=== PATIENT | female | born 1990 | race Asian ===

== ENCOUNTER 2017-07-28 20:18 | Emergency (ER) | payer OTHER ==
[2017-07-28 20:41] VITALS: BP 137/80; PULSE 75; RESP 16; TEMP 98.1; O2SAT 98
--- NOTE | 2017-07-28 21:41 | EDPHY ---
H & P Time Seen by Provider: 07/28/17 21:04 HPI/ROS: This patient reports that her skin grew over the back of her earring in her right upper earlobe is causing mild discomfort. Her slight swelling associated with this to the area of skin. She started noticing some discomfort over the past week after having the earring in for couple weeks and then today realized that she could remove the urine because a skin the groin over the back. She came in by private vehicle for evaluation. ROS: No fevers chills or other constitutional symptoms. Integumentary: No other skin rash or issues. 5 point ROS is otherwise negative. Smoking Status: Never smoked Physical Exam: Physical Exam Vital signs are normal. General: No acute distress HEENT: Normal except for right ear right ear exam is notable for mild erythema of skin grown over the back of her upper earlobe earring with associated mild tenderness. No fluctuance. External canals normal nurse for your exam is normal. Eyes: Pupils equal and react to light. Extraocular motions are intact. Cardiac: Brisk capillary refill is intact throughout. Skin: See HEENT exam above Neuro: Alert and oriented x3 with no sensorimotor deficits. Constitutional: Initial Vital Signs Temperature (C) 36.7 C 07/28/17 20:35 Heart Rate 75 07/28/17 20:35 Respiratory Rate 16 07/28/17 20:35 Blood Pressure 137/80 H 07/28/17 20:35 O2 Sat (%) 98 07/28/17 20:35 O2 Delivery Mode Room Air Allergies/Adverse Reactions: amoxicillin [Amoxicillin] Allergy (Intermediate, Verified 07/28/17 20:45) Home Medications: Medication Instructions Recorded Multivitamin (OTC) 12/14/14 MDM/Departure - MDM Procedures: Foreign body removal-right ear lobe After verbal consent I used chlorhexidine scrub, 1% plain lidocaine and 27 gauge needle-1 mL with good effect. I then used a 11. Scalpel blade making a small incision over the affected area and was then able to use Lynsey clamps easily remove the earring backing. Patient tolerated this well without complications. Bacitracin and gauze bandage were then applied by our tech. We counseled regarding wound care. - Depart Disposition: Home, Routine, Self-Care Clinical Impression: Acute foreign body of right earlobe Qualifiers: Encounter type: initial encounter Qualified Code(s): T16.1XXA - Foreign body in right ear, initial encounter Condition: Good Instructions: Acute Wounds (ED) Additional Instructions: Diagnosis: Foreign body-back of the earring in right earlobe-removed Plan: Clean the ear daily with warm soapy water Apply a bandage if there is any bleeding. Tylenol and/or ibuprofen for pain if needed Return for redness, discharge or any other concerns for infection. Referrals: NONE *PRIMARY CARE P,. [Primary Care Provider] - As per Instructions
== END 2017-07-28 21:53 | disposition home or self-care (01) ==
LOC: CED 20:18
PROC: 0JC10ZZ Extirpation of Matter from Face Subcutaneous Tissue and Fascia, Open Approach (ICD-10-PCS; principal; 2017-07-28)
DX: T16.1XXA Foreign body in right ear, initial encounter (principal); X58.XXXA Exposure to other specified factors, initial encounter